=== PATIENT | female | born 1985 | race Caucasian/White ===

== ENCOUNTER → 2024-12-04 16:00 | Outpatient (BNVA) | payer BC, SELFPAY | PROVIDERS: PCP Internal Medicine; Visit Provider Physician Assistant Medical | DX: Z76.89 Persons encountering health services in other specified circumstances (principal); R63.5 Abnormal weight gain; Z68.33 Body mass index [BMI] 33.0-33.9, adult; E78.5 Hyperlipidemia, unspecified; I10 Essential (primary) hypertension; E06.3 Autoimmune thyroiditis; Z86.39 Personal history of other endocrine, nutritional and metabolic disease | CPT/HCPCS: 96127 ==

== ENCOUNTER 2024-12-08 08:50 | Outpatient (REF) | payer BC, SELFPAY ==
--- OUTSIDE RECORDS SUMMARY | 2024-12-08 09:04 | XMS_ITS | Data Portability ---
Author Organization [facility], , [facility] Address [address] [place] [address] Care Team Providers Care Avionics Test Technician Name Role Phone LINDA TRACEY Primary Care Provider Unavailabl e Assessment Encounter Date Assessment Date Assessment LastModified by Organization Details LastModified Time 06/25/2009 06/25/2009 Local reaction to adacel.? ? ? Reassured.? ? ? Suspect this will resolve over a two-week period.? ? ? Revisit if symptoms worse. him him Not available 04/15/2011 02:21:33 Plan of Treatment Reminders Order Date Submit Date Provider Last Modified By Organization Details Last Modified Time Details Appointments None recorded. Lab TSH, serum or plasma 2013 [facility], [address] [place] [address], [address], 19:19:56 T4, free, serum 2013 [facility], [address] [place] [address], [address], 4 19:19:54 Referral None recorded. Procedures None recorded. Surgeries None recorded. Imaging ultrasound , thyroid 2013 014 [facility] (Imaging), [address], [place], [address], 4 20:12:27 Medication Orders levothyrox ine 50 mcg tablet 2013 014 [facility], [address] [place], [address], 4 14:40:09 Tubersol 5 tub. unit/0.1 mL intraderma l injection solution 2008 009 [email or web address] Not available 4 14:04:33 Patient TargetsNo targets recorded. Patient Instructions Encounter Date Encounter Id Patient Instructions Last Modified By Organization Details Last Modified Time 05/24/2014 [id number] Well Visit, Ages 18 to 65: Care Instructions cresencio Not available 05/24/2014 14:40:05 [email or web address] Not available 2013 14:40:05 Reason for Referral None Reported. Results Created Date Observation Date Name Description Value Unit Range Abnormal Flag Note LastModifiedBy Organization Detail LastModifiedTime 06/21/20 09 06/21/2009 gluco se glucose 100 mg/dL 70-100 clini joanne refer ence range s fasti ng gluco se <100 mg/dL = nancie l fasti ng gluco se; 100-1 25 mg/dL = ifg (impa ired fasti ng gluco se); >126 mg/dL = provi siona l diagn osis of diabe man (conf irm by reperoxana brooks testdonnie early on A diffe day.) Not Available [address], [address], 06/21/2009 13:14:13 06/21/20 09 06/21/2009 thyro id stimu latin g hormo ne (TSH) TSH 1.66 uIU/m L 0.50-6 .00 the ameri can colle ge of endoc rinol ogy and ameri can thyro id assoc iatio n recom mend goal TSH value s betwe en 1.0-2 .5 mIU/m L. Not Available [address], [address], 06/21/2009 13:43:18 06/21/20 09 06/27/2009 varic marilyn, immun e statu s varicella-zo ster, acif >=1:4 abnormal refer ence range : <1:4 inter preti ve crite shruthi: <1:4 antib maxine not detec govind - evide nce for susce ptibi lity to vzv infec tion. > or = 1:4 antib maxine detec govind - evide nce for immun ity again st vzv infec tion. A posit sheeba titer (grea ter than or equal to 1:4) by antic omple ment immun ofluo resce nce (acif ) indic ates A histo ry of past infec tion by varic marilyn- zoste r virus . this test IS usual ly posit sheeba withi n 2 days after the onset of rash and IS there after posit sheeba for life. conve rsely , the absen ce of detec table antib maxine IS evide nce of susce ptibi lity to varic marilyn (chic kenpo x). Not Available [facility] [address], [place], [address], 06/27/2009 06:24:29 07/05/20 14 07/05/2014 T4, free, serum thyroxine free 4 1.17 NG/dL 0.93-1 .70 Nanette martin Note: New Refer ence Range as of 05/15 Not Available [facility] (Outpatient) [address] [place], [address], 07/05/2014 19:19:53 07/05/20 14 07/05/2014 TSH, serum or plasm a TSH 2.420 mU/L 0.270- 4.20 Not Available [facility] (Outpatient) [address] [place], [address], 07/05/2014 19:19:56 05/30/20 14 05/29/2014 ultra sound , thyro id OBSERV ATION: Examin ation: Thyroi d ultras ound Indica tion: Hypoth yroidi sm and family histor y of thyroi d nodule s (siste r will be having thyroi dectom y) Thyroi d ultras ound study was perfor med and multip le static and color flow images were obtain ed. Images are provid ed as transv erse by snow al by AP. The right lobe measur es 1.8 x 4.8 x 1.3 cm yieldi ng a volume of 6.0 cc. There are no discre te nodule s seen in the right lobe. At the inferi or portio n of the lobe, there are 2 hypoec hoic areas that appear to be lymph nodes. Both of these are greate r in the transv erse and sagitt al dimens ions versus AP. There are theref ore rounde d but contai n no centra l streak ing. The isthmu s measur es 0.4 cm in width. There are no nodule s in the isthmu s. The left lobe measur es 1.7 x 3.9 x 1.2 cm yieldi ng a volume of 4.2 cc. There is one nodule noted in the left lobe. Nodule #1: This nodule is in the lower portio n of the lobe and is anteri or and medial . It measur es 1.0 x 0.9 x 0.5 cm. The margin s are regula r and it is solid. It is genera lly hypoec hoic in echote xture. There are no calcif icatio ns seen in the shadow ing is not presen t. Impres christiano: Relati vely small thyroi d gland consis tent with a histor y of hypoth yroidi sm. There is some mild hetero geneit y to both lobes which could be consis tent with autoim mune diseas e. The single nodule noted in the inferi or portio n of the left lobe is below the thresh old of 1.5 cm and theref ore consid ered to be fairly low risk. If there is ongoin g concer n, this can be follow ed over time. Clinic al correl ation is advise d. Electr onical ly signed Goldy link Physic nick: Tay perez MD [facility] (Imaging) [address] , [place], [address], 07/12/2014 10:49:45 Result Notes None recorded. Problems Name Problem SNOMED Code Status Onset Date Resolution Date Notes Provider Name and Address Organization Details Recorded Time Hypothyroidis m 74326616 Active Luis Tesfaye MD [address] [place] [address], [id number] , [facility] 5 17:24:12 Tachycardia 9429809 Active Not Available [facility] 3 03:04:16 Low back pain 409119367 Active 2000 Not Available [facility] 3 03:04:16 Problem Notes None recorded. Procedures Surgical History Date Name Laterality Status Provider Name and Address Organization Details Recorded Time 07/28/2013 completed Angelica Connolly NP [address] [place], [address], [facility] 07/30/2013 20:03:23 07/03/2007 completed Not Available [facility] 06/18/2011 06:05:52 Imaging Results Imaging Date Name Status LastModified by Organiz ation Details LastModified Time 05/29/2014 ultrasound, thyroid completed [facility] (Imaging) [address] , [place], [address], 07/12/2014 10:49:45 Procedure Notes None recorded. Medical Equipment None Reported. Medications Name Sig Start Date Stop Date Status Note LastModified by Organization Details LastModified Time Tubersol 5 tub. unit/0.1 mL intradermal injection solution Take 1 mL by intradermal route. active Not Available Not Available No t Available levothyroxin e 50 mcg tablet TAKE ONE TABLET BY MOUTH EVERY DAY active Not Available Not Available No t Available Zenchent (28) 0.4 mg-35 mcg tablet active Not Available Not Available Not Available Vitals Date Recorded Body weight Body mass index (BMI) Body height Heart rate Systolic blood pressure Diastolic blood pressure Provider Name and Address Organization Details Last Updated DateTime 4 80852.7 00942 g 32.4 kg/m2 141.605 cm 100 /min 138 mm[Hg] 80 mm[Hg] Jodee Spencer LPN [facility] 4 14:04:33 Date Recorded Body height Body weight Body mass index (BMI) Body temperature Heart rate Systolic blood pressure Diastolic blood pressure Provider Name and Address Organization Details Last Updated DateTime 9 149.86 cm 71382.0 39189 g 22.9 kg/m2 97.9 [degF] 96 /min 124 mm[Hg] 80 mm[Hg] Krysten Marquez LPN [facility] 9 15:25:23 Date Recorded Body height Body mass index (BMI) Body weight Heart rate Systolic blood pressure Diastolic blood pressure Provider Name and Address Organization Details Last Updated DateTime 4 148.59 cm 29.4 kg/m2 86049.7 0891 g 68 /min 124 mm[Hg] 72 mm[Hg] Renettajunito Perales [place] [facility] 4 10:42:38 Date Recorded Body height Body mass index (BMI) Body weight Heart rate Systolic blood pressure Diastolic blood pressure Provider Name and Address Organization Details Last Updated DateTime 5 148.59 cm 29.2 kg/m2 66384.1 1654 g 96 /min 128 mm[Hg] 74 mm[Hg] Tiffanie Orlando [facility] 5 16:37:02 Social History Question Answer Notes LastModified by Organizat ion Details LastModified Time Tobacco Smoking Status Never Smoker Not Available [facility] 06/18/2011 04:54:19 Do You Have An Advance Directive? No [email or web address] Information not available 06/18/2011 What Is Your Level Of Alcohol Consumption? Occasional No Hx Abuse Information not available 05/24/2014 What Is Your Level Of Caffeine Consumption? Moderate 2 Cups Of Coffee A Day Information not available 06/21/2009 How Much Tobacco Do You Chew? None [email or web address] Information not available 06/18/2011 What Type Of Diet Are You Following? REGULAR [email or web address] Information not available 06/18/2011 Which Illicit Or Recreational Drugs Have You Used? 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 No [email or web address] Information not available 06/18/2011 Live Alone Or With Others? With Others /kid s Information not available 06/21/2009 Patient Has Health Care Proxy Signed And In Chart No Form Given To Patient 05/24/14 Information not available 05/24/2014 Marital Status [email or web address] Informatio n not available 05/24/2014 Mosquito Repellent Used Routinely No Information not available 05/24/2014 How Many Children Do You Have? 2 Daughters, 7 Yrs And 1 Yr [07/15] Information not available 05/24/2014 Seat Belts Used Routinely Yes [email or web address] Information not available 06/18/2011 Are You Sexually Active? Yes [email or web address] Information not available 06/18/2011 Smoke Alarm In Home Yes [email or web address] Information not available 06/18/2011 What Types Of Sporting Activities Do You Participate In? None [email or web address] Information not available 06/18/2011 General Stress Level Low [email or web address] Information not available 06/18/2011 Do You Use Sunscreen Routinely? Yes Information not available 05/24/2014 Sex: Unknown Functional Status None recorded. Mental Status None recorded. Family History Relationship Description Onset Age of this Age Resolved Age Notes LastModified by Organization Details LastModified Time Mother Hyperlipidem ia jpolgar Not available 2013 14:23:07 Paternal Grandmother Dementia jpolgar Not available 05/24 14:23:07 Maternal Grandmother Problem aneury sm jpolgar Not available 05/24/2014 14:23:07 Maternal Grandmother Malignant neoplasm of lung previo usly record ed as Cancer - Lung jpolgar Not available 05/24/2014 14:23:07 Maternal Grandmother Malignant tumor of colon previo usly record ed as Cancer - Colon jpolgar Not available 05/24/2014 14:23:07 Notes:No family hx of dm, br east cancer. No CAD hx. MOM: 60y/o: lipids DAD: 62y/o: a&w SIS :1: thyroid nodules with atypical cells. To get thyroidectomy soon BRO: 2: a&w OTTO: 2: a&w SON: 0 Medical History No medical history recorded. Gynecological History Statement/Question Response Menses Monthly Y HPV Y Duration of Flow (days) 6 History of Abnormal Pap Y Age at Menarche 12 Obstetrics History GPAL:G 0 P 0 0 0 0 Immunizations Vaccine Type Date Status Note Provider Nam mario and Address Organization Details Recorded Time Tdap 06/21/2009 completed Not Available [facility] 08/19/2019 02:27:37 Past Encounters Encounter ID Performer Location Encounter Start Date Encounter Closed Date Diagnosis/Indication Diagnosis SNOMED-CT Code Diagnosis ICD10 Code Diagnosis Note [id number] [facility] , [facility] [address] [place] [address] 12/02/2000 09:30:00 08/22/2008 02:02:29 [id number] Angelica Connolly NP , [facility] [address] [place] [address] 06/21/2009 07:59:35 06/21/2009 14:43:33 [id number] TREATMENT NURSE [facility], [facility] [place] [address] [place] [address] 06/24/2009 09:46:53 06/25/2009 08:31:01 [id number] Tracey Mccarthy MD [facility], OFFICE [address] [place] [address] 06/25/2009 15:11:18 06/26/2009 08:34:19 [id number] Stefan Pratt PA-C , [facility] [place] [address] [place] [address] 05/24/2014 13:50:28 05/24/2014 14:46:44 Adult health examination [id number] Benign exam. Oven Builder is done elsewhere. Counseling [id number] Hypothyroidism 81919254 d/w [place]. Will start supplement tation and recheck in 6 wks since she's symptomati c. Will US as she has concerns since sister has thyroid nodule and will be get thyroidect cassandra. [id number] LILLI Lange, [facility] [place] [address] [place] [address] 07/12/2014 10:30:32 07/12/2014 10:54:26 Hypothyroidism 67533701 Stable now on this dose. Continue [id number] MD ODELL Lanier, [facility] [place] [address] [place] [address] 05/03/2015 16:25:38 05/06/2015 13:17:33 Hypothyroidism 84469657 E03.9 Health Concerns Section Related Observation LastModified by Organization Detai ls LastModified Time None Recorded Concern Status LastModified by Organization Details LastModified Time None Recorded Advance Directives Directive N: Payers Encounter Date Sequence Insurance Name Policy Number Policy Palacio Covered Member ID Palacio Member ID Guarantor Name 06/24/2009 1 [facility] [place] [facility] [id number] Italo AhnRodriges [id number] Rica Martin O Rodriges 06/25/2009 1 [facility] [id number] Italo AhnRodriges [id number] Rica Matrin O Rodriges 05/24/2014 1 [facility] [id number] Bronson Estrada [id number] Rica Martin O Rodriges 07/12/2014 1 [facility] [id number] Bronson Estrada [id number] Rica Martin O Rodriges 05/03/2015 1 [facility] [id number] Bronson Estrada [id number] Rica E O Rodriges Notes Date Note Type Note Provider Name and Address Organization Details Recorded Time 06/24/2009 text/html InitializeSectio n( this.parentNode, 1 ); this.removeNode(tr ue)HPI Pt enters for PPD read at no charge..bf? Edilma Rucker LPN [facility] 06/24/2009 10:43:01 06/25/2009 text/html Patient seen toeunice bowers because of her reaction to adacel given 06/21. Noted pain and swelling in the next day. No fever. Noted some redness. Area feels better today. She thinks the area swelling a smaller. There is some ichiness. No previous difficulties with tetanus shots. No difficulty breathing. No fever Tracey Mccarthy MD [address] [place] [address], [phone], [facility] 06/25/2009 15:45:38 07/12/2014 text/html fu newly dx hypothyroidism. 6 wks on meds. Tired a bit but bad sleep lately. Not really noticing anything on the medicine though. Stefan Pratt PA-C [address] [place] [address], [phone], [facility] 07/12/2014 10:53:41 OBGyn Episode No OBEpisode recorded.
[2024-12-08 09:56] LABS: MANUAL DIFF FLAG NO
[2024-12-08 10:06] LABS: Basophils Absolute Auto 0.1 X10*3/uL (0.0-0.2); Basophils Percent Auto 1.1 % (0-2); Eosinophils Absolute Auto 0.1 X10*3/uL (0.0-0.4); Eosinophils Percent Auto 1.1 % (0-4); Hematocrit 38.1 % (37.0-47.0); Hemoglobin 13.3 g/dl (12.0-16.0); Imm Gran Abs Auto 0.01 X10*3/uL (0.00-0.03); Imm Gran Pct Auto 0.2 % (0.0-0.4); Lymphocytes Absolute Auto 1.6 X10*3/uL (1.2-4.9); Lymphocytes Percent Auto 35.5 % (20-40); Mean Corpuscular HGB Conc 34.9 g/dl (31.0-35.0); Mean Corpuscular Hemoglobin 30.4 pg (27.0-33.0); Mean Corpuscular Volume 87.2 fL (80.0-98.0); Mean Platelet Volume 9.8 fL (9.4-12.3); Monocytes Absolute Auto 0.3 X10*3/uL (0.1-1.2); Monocytes Percent Auto 6.7 % (2-11); Neutrophils Absolute Auto 2.5 x10*3/uL (2.0-8.3); Neutrophils Percent Auto 55.4 % (45-73); Platelet Count 191 X10*3/uL (160-400); Red Blood Count 4.37 X10*6/uL (4.20-5.50); Red Cell Distribution Width 12.2 % (11.0-16.0); White Blood Count 4.5 X10*3/uL (4.8-10.8)
[2024-12-08 10:18] LABS: Estimated Average Glucose 97 mg/dL; Hemoglobin A1C 110.9289 umol/L; Total Hemoglobin (HGBA1C) 3528.4474 umol/L
[2024-12-08 10:43] LABS: Erythrocyte Sedimentation Rate 11 MM/HR (0-20)
[2024-12-08 10:49] LABS: Alanine Aminotransferase 37 U/L (0-31); Albumin Level 4.3 g/dL (3.5-5.0); Alkaline Phosphatase 51 U/L (39-117); Anion Gap 11 (12-20); Aspartate Amino Transferase 26 U/L (5-31); Bilirubin Direct 0.2 mg/dL (0.0-0.5); Bilirubin Total 0.7 mg/dL (0.0-1.0); Blood Urea Nitrogen 10 mg/dL (9-16); C Reactive Protein 0.21 mg/dL (< or = 0.50); Calcium 9.3 mg/dL (8.4-10.2); Carbon Dioxide 22 mmol/L (22-29); Chloride 106 mmol/L (96-108); Cholesterol 180 mg/dL (<200); Estimated Glomerular Filt Rate > 60; Glucose Fasting 95 mg/dL (60-99); HDL Cholesterol 59 mg/dL (>40); LDL Cholesterol Calculated 105 mg/dL (<100); Magnesium 1.8 mg/dL (1.6-2.6); Potassium 3.4 mmol/L (3.3-5.1); Sodium 136 mmol/L (135-145); Total Protein 7.2 g/dL (6.5-8.0); Triglycerides 80 mg/dL (<150)
[2024-12-08 11:05] LABS: TSH reflex Free T4 1.18 uIU/mL (0.32-4.0); Vitamin D 25-OH Total 29.2 ng/mL (>30)
[2024-12-08 11:14] LABS: Folate 13.5 ng/mL (> or = 4.0); Vitamin B12 587 pg/mL (200-900)
[2024-12-09 08:28] LABS: Lutenizing Hormone 1.4 mIU/mL
[2024-12-12 22:29] LABS: Estrogen 335 pg/mL
[2024-12-14 13:24] LABS: Testosterone, Total 14 ng/dL (2-45)
== END 2024-12-08 08:51 | disposition home or self-care (01) ==
LOC: HO.HMGCLDS 08:50
PROVIDERS: Visit Provider Physician Assistant Medical
DX: Z00.00 Encounter for general adult medical examination without abnormal findings (principal); Z13.1 Encounter for screening for diabetes mellitus; Z13.6 Encounter for screening for cardiovascular disorders
CPT/HCPCS: 36415; 80053; 80061; 80076; 82248; 82306; 82607; 82672; 82746; 83002; 83036; 83735; 84144; 84146; 84403; 84443; 85025; 85652; 86140

== ENCOUNTER → 2024-12-18 16:00 | Outpatient (BNVA) | payer BC, SELFPAY | PROVIDERS: PCP Internal Medicine; Visit Provider Physician Assistant Medical | DX: R03.0 Elevated blood-pressure reading, without diagnosis of hypertension (principal); E66.811 Obesity, class 1; Z68.33 Body mass index [BMI] 33.0-33.9, adult; E78.00 Pure hypercholesterolemia, unspecified | CPT/HCPCS: 96127 ==

== ENCOUNTER 2025-01-18 12:49 | Outpatient (REF) | payer BC, SELFPAY ==
--- NOTE | ~2025-01-18 | US_ITS ---
EXAMINATION: US THYROID CLINICAL INFORMATION: Goiter; personal history of other endocrine, nutritional, and metabolic disorders. COMPARISON: None available. TECHNIQUE: Linear transducer grayscale and color Doppler examination with attention to the region of the thyroid. FINDINGS: SIZE: Measurements of the thyroid lobes and nodules are given in sagittal, anteroposterior and transverse dimensions respectively. Right Thyroid Lobe: 4.6 x 1.4 x 1.3 cm, volume 4.3 mL. Parenchyma: The gland echotexture is heterogeneous. Thyroid vascularity is normal. Left Thyroid Lobe: 4.7 x 1.5 x 1.6 cm, volume 5.9 mL. Parenchyma: The gland echotexture is heterogeneous. Thyroid vascularity is normal. Isthmus: 0.44 cm in maximum AP dimension. Estimated total number of nodules greater than or equal to 1 cm: 1. Hospital Clerk nodules are described as follows: 1. Location: Left upper pole. Size: 1.2 x 0.7 x 0.8 cm, volume 0.4 mL. Nodule characteristics: Composition: Solid (2). Echogenicity: Hypoechoic (2). Shape: Not taller than wide (0). Margins: Smooth (0). Echogenic Foci: None (0). ACR TI-RADS total points: 4 ACR TI-RADS category: 4 2. Location: Right mid pole. Size: 0.7 x 0.4 x 0.6 cm, volume 0.08 mL. Nodule characteristics: Composition: Spongiform (0). ACR TI-RADS category: 1 3. Location: Right lower pole. Size: 0.5 x 0.5 x 0.4 cm, volume 0.5 mL. Nodule characteristics: Composition: Spongiform (0). ACR TI-RADS category: 1 NODES: No lymphadenopathy is seen in the tissue surrounding the thyroid gland. US/US thyroid IMPRESSION: 1. Heterogeneous thyroid suggesting thyroiditis. 2. There is a 1.2 cm left upper pole TR category 4 nodule. No prior available for direct comparison. Follow-up recommended as per below. 3. There are 2 subcentimeter right thyroid spongiform nodules, both benign. ACR TI-RADS RECOMMENDATION REFERENCE: Ultrasound-guided fine-needle aspiration, followup ultrasound, no further follow up. * TR1 (0 point) and TR2 (2 points): No FNA or follow up. * TR3 (3 points): FNA if more than or equal to 2.5 cm in maximum dimension, followup ultrasound in 1, 3 and 5 years if 1.5 to 2.4 cm in maximum dimension. * TR4 (4-6 points): FNA if more than or equal to 1.5 cm in maximum dimension, followup ultrasound in 1, 2, 3 and 5 years if 1 to 1.4 cm in maximum dimension. * TR5 (more than or equal to 7 points): FNA if more than or equal to 1 cm in maximum dimension, followup ultrasound every year for 5 years if 0.5 to 0.9 cm in maximum dimension. * TR3, TR4 or TR5 nodules that are below the size threshold for followup receive no follow up. Electronically signed by: Juan F Rai MD 01/18/2025 01:21 PM EDT
--- OUTSIDE RECORDS SUMMARY | 2025-01-18 13:54 | XMS_ITS | Data Portability ---
Author Organization [facility], , [facility] Address [address] [place] [address] Care Team Providers Care Platinumsmith Name Role Phone LINDA TRACEY Primary Care Provider Unavailabl e Assessment Encounter Date Assessment Date Assessment LastModified by Organization Details LastModified Time 06/25/2009 06/25/2009 Local reaction to adacel. Reassured. Suspect this will resolve over a two-week period. Revisit if symptoms worse. him him Not available 04/15/2011 02:21:33 Plan of Treatment Reminders Order Date Submit Date Provider Last Modified By Organization Details Last Modified Time Details Appointments None recorded. Lab TSH, serum or plasma 2013 [facility], [address] [place] [address], [address], 4 19:19:56 T4, free, serum 2013 [facility], [address] [place] [address], [address], 4 19:19:54 Referral None recorded. Procedures None recorded. Surgeries None recorded. Imaging ultrasound , thyroid 2013 014 [facility] (Imaging), [address], [place], [address], 4 20:12:27 Medication Orders levothyrox ine 50 mcg tablet 2013 014 [facility], [address] [place], [address], 4 14:40:09 Tubersol 5 tub. unit/0.1 mL intraderma l injection solution 2008 009 [email or web address] Not available 4 14:04:33 Patient TargetsNo targets recorded. Patient Instructions Encounter Date Encounter Id Patient Instructions Last Modified By Organization Details Last Modified Time 05/24/2014 [id number] Well Visit, Ages 18 to 65: Care Instructions cresencio Not available 05/24/2014 14:40:05 [email or web address] Not available 2013 14:40:05 Reason for Referral [...] osis of diabe man (conf irm by aleksandar brooks testdonnie early on A diffe day.) Not Available [address], [address], 06/21/2009 13:14:13 06/21/20 09 06/21/2009 thyro id stimu latin g hormo ne (TSH) TSH 1.66 uIU/m L 0.50-6 .00 the ameri can colle ge of endoc rinol ogy and ameri can thyro id assoc iatio n recom mend goal TSH value s betwe en 1.0-2 .5 mIU/m L. Not Available [address], [address], 06/21/2009 13:43:18 06/21/20 09 06/27/2009 varic marilyn, [...] varic marilyn (chic kenpo x). Not Available [facility] [address], [place], [address], 06/27/2009 06:24:29 07/05/20 14 07/05/2014 T4, free, serum thyroxine free 4 1.17 NG/dL 0.93-1 .70 Nanette martin Note: New Refer ence Range as of 05/15 Not Available [facility] (Outpatient) [address] [place], [address], 07/05/2014 19:19:53 07/05/20 14 07/05/2014 TSH, serum or plasm a TSH 2.420 mU/L 0.270- 4.20 Not Available [facility] (Outpatient) [address] [place], [address], 07/05/2014 19:19:56 05/30/20 14 05/29/2014 ultra sound [...] provid ed as transv erse by snow navarro by ARAM. The right lobe measur es 1.8 x [...] Goldy link Physic nick: Tay perez MD [facility] (Imaging) [address] , [place], [address], 07/12/2014 10:49:45 Result Notes None recorded. Problems Name Problem SNOMED Code Status Onset Date Resolution Date Notes Provider Name and Address Organization Details Recorded Time Hypothyroidis m 57781151 Active Luis Tesfaye MD [address] [place] [address], [phone] , [facility] 5 17:24:12 Tachycardia 3158393 Active Not Available [facility] 3 03:04:16 Low back pain 304224369 Active 2000 Not Available [facility] 3 03:04:16 Problem Notes None recorded. Procedures Surgical History Date Name Laterality Status Provider Name and Address Organization Details Recorded Time 07/28/2013 completed Angelica Connolly NP [address] [place] [address], [phone], [facility] 07/30/2013 20:03:23 07/03/2007 completed Not Available [facility] 06/18/2011 06:05:52 Imaging Results None recorded. Procedure Notes None recorded. Medical Equipment None [...] Available Not Available Vitals Date Recorded Body height Body mass index (BMI) Body weight Heart rate Systolic blood pressure Diastolic blood pressure Provider Name and Address Organization Details Last Updated DateTime 5 148.59 cm 29.2 kg/m2 27546.1 1654 g 96 /min 128 mm[Hg] 74 mm[Hg] Tiffanie Verduzcoard [facility] 5 16:37:02 Date Recorded Body weight Body mass index (BMI) Body height Heart rate Systolic blood pressure Diastolic blood pressure Provider Name and Address Organization Details Last Updated DateTime 4 06131.7 77870 g 32.4 kg/m2 141.605 cm 100 /min 138 mm[Hg] 80 mm[Hg] Jodee Spencer [facility] 4 14:04:33 Date Recorded Body height Body weight Body mass index (BMI) Body temperature Heart rate Systolic blood pressure Diastolic blood pressure Provider Name and Address Organization Details Last Updated DateTime 9 149.86 cm 05024.0 85098 g 22.9 kg/m2 97.9 [degF] 96 /min 124 mm[Hg] 80 mm[Hg] Krysten Marquez [employer] [facility] 11/24/200 9 15:25:23 Date Recorded Body height Body mass index (BMI) Body weight Heart rate Systolic blood pressure Diastolic blood pressure Provider Name and Address Organization Details Last Updated DateTime 4 148.59 cm 29.4 kg/m2 53830.7 0891 g 68 /min 124 mm[Hg] 72 mm[Hg] Renetta Perales MA [facility] 4 10:42:38 Social History Question Answer Notes LastModified by Organizat ion Details LastModified Time Tobacco Smoking Status Never Smoker Not Available [facility] 06/18/2011 04:54:19 Do You Have An Advance Directive? No DBA_[email or web address]_ [email or web address] Information not available 06/18/2011 What Is Your Level Of Caffeine Consumption? [...] not available 05/24/2014 Education 4 Year College [employer] [facility]psy[facility]ology Information not available 06/21/2009 Are There Any Guns Present In Your Home? No DBA_PATCH_ [email or web address] Information not available 06/18/2011 Live Alone Or With Others? With Others /kids Information not available 06/21/2009 Patient Has Health [...] not available 05/24/2014 Sex: Unknown Functional Status Question Answer Note LastModified by Organizat ion Details LastModified Time What is your level of alcohol consumption? 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 Family History Relationship [...] Vaccine Type Date Status Note Provider Nam e and Address Organization Details Recorded Time Tdap 06/21/2009 completed Not Available [facility] 08/19/2019 02:27:37 Past Encounters Encounter ID Performer Location Encounter Start Date Encounter Closed Date Diagnosis/Indication Diagnosis SNOMED-CT Code Diagnosis ICD10 Code Diagnosis Note [id number] [facility] , [address] [address] 12/02/2000 09:30:00 08/22/2008 02:02:29 [id number] ELY Kapoor, [facility], OFFICE [address] [place] [address] 06/21/2009 07:59:35 06/21/2009 14:43:33 [id number] TREATMENT NURSE [facility] ODELL, [facility], OFFICE [address] [place] [address] 06/24/2009 09:46:53 06/25/2009 08:31:01 [id number] MD ODELL Carty, [facility], OFFICE [address] [place] [address] 06/25/2009 15:11:18 06/26/2009 08:34:19 [id number] LILLI Lange [facility], OFFICE [address] [place] [address] 05/24/2014 13:50:28 05/24/2014 14:46:44 Adult health examination [id number] Benign exam. Spring Up Supervisor is done elsewhere. Counseling [id number] Hypothyroidism 41454396 d/w [place]. Will start supplement tation and recheck in 6 wks since she's symptomati c. Will US as she has concerns since sister has thyroid nodule and will be get thyroidect cassandra. [id number] LILLI Lange [facility], OFFICE [address] [place] [address] 07/12/2014 10:30:32 07/12/2014 10:54:26 Hypothyroidism 35325894 Stable now on this dose. Continue [id number] MD ODELL Lanier, [facility], OFFICE [address] [place] [address] 05/03/2015 16:25:38 05/06/2015 13:17:33 Hypothyroidism 47615453 E03.9 Health Concerns Section Related Observation LastModified by Organization Detai ls LastModified Time None Recorded Concern Status LastModified by Organization Details LastModified Time None Recorded Advance Directives Directive N: Payers Insurance Date Sequence Insurance Name Policy Number Policy Palacio Covered Member ID Palacio Member ID Guarantor Name 04/16/2014 1 [facility] CARL [id number] Italo Gann'Rodriges [id number] Rica Rodriges 05/24/[address] [facility] [id number] Rica Mitchell [id number] Rica Masa 10/11/2007 1 [facility] (POS) [id number] Krysten Elizondo [id number] Rica Rodriges 05/03/2015 1 [facility] [id number] Bronson Estrada [id number] Rica Rodriges Notes Date Note Type Note Provider Name and Address Organization Details Recorded Time 06/24/2009 text/html InitializeSectio n( this.parentNode, 1 ); this.removeNode(tr ue)HPI Pt enters for PPD read at no charge..bf Edilma Rucker LPN [facility] 06/24/2009 10:43:01 06/25/2009 text/html Patient seen grayson bowers because of her reaction to adacel given 06/21. Noted pain and swelling in the next day. No fever. Noted some redness. Area feels better today. She thinks the area swelling a smaller. There is some ichiness. No previous difficulties with tetanus shots. No difficulty breathing. No fever Tracey Mccarthy MD [address] [place] [address], [phone], [facility] 06/25/2009 15:45:38 07/12/2014 text/html fu newly dx hypothyroidism. 6 wks on meds. Tired a bit but bad sleep lately. Not really noticing anything on the medicine though. Stefan Pratt PA-C [address] [place] [address], [phone], [facility] 07/12/2014 10:53:41 OBGyn Episode No OBEpisode recorded.
== END 2025-01-18 12:50 | disposition home or self-care (01) ==
LOC: HO.HMGCX 12:49
PROVIDERS: PCP Internal Medicine; Visit Provider Physician Assistant Medical
DX: Z86.39 Personal history of other endocrine, nutritional and metabolic disease (principal)
CPT/HCPCS: 76536

== ENCOUNTER → 2025-01-18 12:54 | Outpatient (BNV) | payer BC, SELFPAY | PROVIDERS: PCP Internal Medicine; Visit Provider Radiology Diagnostic Radiology | DX: E04.2 Nontoxic multinodular goiter (principal) | CPT/HCPCS: 76536 ==

== ENCOUNTER → 2025-01-23 09:10 | Outpatient (REF) | payer BC, SELFPAY ==
--- NOTE | 2025-01-23 09:13 | CA_ITS ---
Transthoracic Echocardiogram Patient (Last, First, Middle): Rica Mitchell, Gender: Female Date of : 1985 Age: 39 Procedure Date: 01/23/2025 Procedure Type: Transthoracic Echocardiogram Location: OP Height: 149.86 cm Weight: 70.31 kg BSA: 1.65 m2 Heart Rate: bpm BP: 140 / 70 mmHg Gauge Machine Operator: CP/RC Referring MD: Taylor White PA-C Symptoms: R01.1 - Cardiac murmur, unspecified Study Quality: Adequate ECG Rhythm: Sinus Conclusions: - The left ventricular systolic function is normal. The calculated ejection fraction is 60% by biplane method. - No obvious valvular pathology seen on this study. Findings Left Ventricle Normal left ventricular cavity size. There is normal left ventricular wall thickness. The left ventricular systolic function is normal. The calculated ejection fraction is 60% by biplane method. There is no evidence of regional wall motion abnormalities. Diastolic function is normal for age. Right Ventricle Normal right ventricular cavity size and systolic function. Atria Both atria are normal in size. Aortic Valve The aortic valve was not well visualized. There is no aortic valve stenosis. There is no aortic valve regurgitation. Mitral Valve The mitral valve appears normal. There is no mitral valve regurgitation. There is no mitral valve stenosis. Pulmonic Valve The pulmonic valve is likely normal. Tricuspid Valve There is trace tricuspid valve regurgitation. There is no evidence of pulmonary hypertension. Great Vessels The asc aorta and aortic arch are normal in size. Venous The inferior vena cava is normal in size and collapses greater than 50% with inspiration. Pericardium/Pleural There is no evidence of pericardial effusion. Prior Study Comparison No prior study available for comparison. Recommendations, Care & Conclusions No obvious valvular pathology seen on this study. Measurements 2D Linear Measurements IVSd: 1.01 0.6-0.9/0.6-1.0 cm LVIDd: 4.06 3.9-5.3/4.2-5.9 cm LVIDd Index: 2.46 2.4-3.2/2.2-3.1 cm/m2 LVIDs: 2.51 2.0-3.6 cm LVPWd: 0.97 0.7-1.1 cm LA Diam: 3.00 2.7-3.8/3.0-4.0 cm LAIDs Index: 1.82 1.5-2.3 cm/m2 LV Mass: 159.56 67-162/88-224 g LV Mass Index: 96.70 43-95/49-115 g/m2 LVOT Diam: 2.10 3.0+(-)1.3 cm 2D Systolic Function EF 4C: 58.80 >55% EF 2C: 60.50 >55% EF BiP: 59.90 >55% Mitral Valve MV Pk E: 1.11 MV PK A: 0.75 MV Decel Time: 151.00 E/A: 1.50 E'Lateral: 9.79 E'Medial: 6.85 E/E' Med: 16.20 E/E' Lat: 11.30 PHT: 44.00 MVA PHT: 5.00 Decel Ocean: 7.33 Aortic Valve AoV Pk Andrei: 1.68 AoV Mn Andrei: 1.17 AoV VTI: 0.33 AoV Pk Grad: 11.00 Aov Mn Grad: 6.00 MANUEL Cont.VTI: 2.33 LVOT LVOT Pk Andrei: 1.15 LVOT Mn Andrei: 0.72 LVOT VTI: 0.22 LVOT Pk Grad: 5.00 LVOT Mn Grad: 2.00 LVOT Diam: 2.10 LVOT Area: 3.46 Diastolic Function MV Pk E: 1.11 MV Pk A: 0.75 E/A: 1.50 E'Medial: 6.85 E/E' Med: 16.20 E' Laterial: 9.79 E/E' Lat: 11.30 Right Ventricle TAPSE (mm): 29.10 TVS' Andrei: 12.80 Tricuspid Valve RA Press: 3.00 Great Vessels Aorta Sinus of Valsalva: 2.78 2.0-3.5 cm Ao Asc: 2.90 2.1-3.4 cm Ao Arch: 2.40 Updated in Other Vendor System with Status of Final Rakan Alves MD electronically signed on 01/23/2025 4:16:16 PM with status of Final
--- OUTSIDE RECORDS SUMMARY | 2025-01-23 09:45 | XMS_ITS | Data Portability ---
Author Organization [facility], , [facility] Address [address] [place] [address] Care Team Providers Care Warehouse Worker Name Role Phone DANISTRACEY GARCIA Primary Care Provider Unavailabl e Assessment Encounter [...] recorded. Lab TSH, serum or plasma 2013 [facility], [address] [place] [address], [id number], 4 19:19:56 T4, free, serum 2013 [facility], [address] [place] [address], [id number], 4 19:19:54 Referral None recorded. Procedures None recorded. Surgeries None recorded. Imaging ultrasound , thyroid 2013 [facility] (Imaging), [address], [place], [address], 4 20:12:27 Medication Orders levothyrox ine 50 mcg tablet 2013 [id number], [address] [place], [address], 4 14:40:09 Tubersol 5 tub. unit/0.1 mL intraderma l injection solution 2008 009 [email or web address] Not available 4 14:04:33 Patient TargetsNo targets recorded. Patient Instructions Encounter Date Encounter Id Patient Instructions Last Modified By Organization Details Last Modified Time 05/24/2014 [id number] Well Visit, Ages 18 to 65: Care Instructions [email or web address] Not available 05/24/2014 14:40:05 [email or web address] Not available [...] of diabe man (conf irm by aleksandar early on A diffe day.) Not Available [address], [address], 06/21/2009 13:14:13 06/21/20 09 06/21/2009 thyro id stimu latin g hormo ne (TSH) TSH 1.66 uIU/m L 0.50-6 .00 the ameri can colle ge of endoc rinol ogy and ameri can thyro id assoc iatio n recom mend goal TSH value s betwe en 1.0-2 .5 mIU/m L. Not Available [address], [address], 06/21/2009 13:43:18 06/21/20 09 06/27/2009 varic marilyn, [...] varic marilyn (chic kenpo x). Not Available [facility] [address], [place], [address], 06/27/2009 06:24:29 07/05/20 14 07/05/2014 T4, free, serum thyroxine free 4 1.17 NG/dL 0.93-1 .70 Nanette martin Note: New Refer ence Range as of 05/15 Not Available [facility] (Outpatient) [address] [place], [address], 07/05/2014 19:19:53 07/05/20 14 07/05/2014 TSH, serum or plasm a TSH 2.420 mU/L 0.270- 4.20 Not Available [facility] (Outpatient) [address] [place], [address], 07/05/2014 19:19:56 05/30/20 14 05/29/2014 ultra sound [...] as transv erse by snow navarro by AP. The right lobe measur es [...] Goldy link Physic nick: Tay perez MD [facility] (Imaging) [address] , [place], [address], 07/12/2014 10:49:45 Result Notes None recorded. Problems Name Problem SNOMED Code Status Onset Date Resolution Date Notes Provider Name and Address Organization Details Recorded Time Hypothyroidis m 38405870 Active Luis Tesfaye MD [address] [place] [address], [phone] , [facility] 5 17:24:12 Tachycardia 1314158 Active Not Available [facility] 3 03:04:16 Low back pain 180175563 Active 2000 Not Available [facility] 3 03:04:16 Problem Notes None recorded. Procedures Surgical History Date Name Laterality Status Provider Name and Address Organization Details Recorded Time 07/28/2013 completed Angelica Connolly NP [address] [place] [address], [phone], [facility] 07/30/2013 20:03:23 07/03/2007 completed Not Available [facility] 06/18/2011 06:05:52 Imaging Results None recorded. Procedure [...] Updated DateTime 5 148.59 cm 29.2 kg/m2 99720.1 1654 g 96 /min 128 mm[Hg] 74 mm[Hg] Tiffanie Verduzcoard [facility] 5 16:37:02 Date Recorded Body weight Body mass index (BMI) Body height Heart rate Systolic blood pressure Diastolic blood pressure Provider Name and Address Organization Details Last Updated DateTime 4 75509.7 00056 g 32.4 kg/m2 141.605 cm 100 /min 138 mm[Hg] 80 mm[Hg] Jodee Spencer [facility] 4 14:04:33 Date Recorded Body height Body weight Body mass index (BMI) Body temperature Heart rate Systolic blood pressure Diastolic blood pressure Provider Name and Address Organization Details Last Updated DateTime 9 149.86 cm 47396.0 36688 g 22.9 kg/m2 97.9 [degF] 96 /min 124 mm[Hg] 80 mm[Hg] Krysten Marquez [facility] 9 15:25:23 Date Recorded Body height Body mass index (BMI) Body weight Heart rate Systolic blood pressure Diastolic blood pressure Provider Name and Address Organization Details Last Updated DateTime 4 148.59 cm 29.4 kg/m2 43858.7 0891 g 68 /min 124 mm[Hg] 72 mm[Hg] Renetta Perales [place] - [facility] 4 10:42:38 Social History Question Answer Notes LastModified by Organizat ion Details LastModified Time Tobacco Smoking Status Never Smoker Not Available [facility] 06/18/2011 04:54:19 Do You Have An Advance [...] not available 05/24/2014 Education 4 Year College [employer] Information not available 06/21/2009 Are There [...] not available 06/18/2011 General Stress Level Low Information not available 06/18/2011 Do You Use [...] SNOMED-CT Code Diagnosis ICD10 Code Diagnosis Note [id number] [facility] , [address] [address] 12/02/2000 09:30:00 08/22/2008 02:02:29 [id number] Angelica Connolly NP , [facility], [address] [place] [address] 06/21/2009 07:59:35 06/21/2009 14:43:33 [id number] TREATMENT NURSE [facility], [facility], [address] [place] [address] 06/24/2009 09:46:53 06/25/2009 08:31:01 [id number] MD ODELL Carty, [facility], [address] [place] [address] 06/25/2009 15:11:18 06/26/2009 08:34:19 [id number] LILLI Lange, [facility], [address] [place] [address] 05/24/2014 13:50:28 05/24/2014 14:46:44 Adult health examination 801988353 Benign exam. Chief Investigator is done elsewhere. Counseling [id number] Hypothyroidism 08771645 d/w [place]. Will start supplement tation and recheck in 6 wks since she's symptomati c. Will US as she has concerns since sister has thyroid nodule and will be get thyroidect cassandra. [id number] LILLI Lange, [facility], [address] [place] [address] 07/12/2014 10:30:32 07/12/2014 10:54:26 Hypothyroidism 02746670 Stable now on this dose. Continue [id number] MD ODELL Lanier, [facility], [address] [place] [address] 05/03/2015 16:25:38 05/06/2015 13:17:33 Hypothyroidism 98111968 E03.9 Health Concerns Section Related Observation LastModified by Organization Detai ls LastModified Time None Recorded Concern Status LastModified by Organization Details LastModified Time None Recorded Advance Directives Directive N: Payers Insurance Date Sequence Insurance Name Policy Number Policy Palacio Covered Member ID Palacio Member ID Guarantor Name 04/16/2014 1 [facility] [facility] [place] [id number] Italo Mitchell [id number] Rica Rodriges 05/24/[address] [facility] [place] [id number] Rica AhnRodriges [id number] Rica E O Rodriges 10/11/2007 1 [facility] [place] ([facility]) [id number] Krysten Elizondo [id number] Rica Martin O Rodriges 05/03/2015 1 [facility] [id number] Bronson Estrada [id number] Rica Martin O Rodriges Notes Date Note Type Note Provider Name and Address Organization Details Recorded Time 06/24/2009 text/html InitializeSectio n( this.parentNode, 1 ); this.removeNode(tr ue)HPI Pt enters for PPD read at no charge..bf [facility] 06/24/2009 10:43:01 06/25/2009 text/html Patient seen toeunice bowers because of her reaction to adacel given 06/21. Noted pain and swelling in the next day. No fever. Noted some redness. Area feels better today. She thinks the area swelling a smaller. There is some ichiness. No previous difficulties with tetanus shots. No difficulty breathing. No fever Tracey Mccarthy MD [address] [place] [address], [phone], [facility] 06/25/2009 15:45:38 07/12/2014 text/html fu newly dx hypothyroidism. 6 wks on meds. Tired a bit but bad sleep lately. Not really noticing anything on the medicine though. Stefan Pratt PA-C [address] [place] [address], [phone], [facility] 07/12/2014 10:53:41 OBGyn Episode No OBEpisode recorded.
== END ==
LOC: HO.CARD 09:10
PROVIDERS: PCP Internal Medicine; Visit Provider Physician Assistant Medical
DX: R01.1 Cardiac murmur, unspecified (principal); I10 Essential (primary) hypertension; E78.5 Hyperlipidemia, unspecified
CPT/HCPCS: 93306

== ENCOUNTER → 2025-01-23 09:13 | Outpatient (BNV) | payer BC, SELFPAY | PROVIDERS: PCP Internal Medicine; Visit Provider Internal Medicine | DX: R01.1 Cardiac murmur, unspecified (principal) | CPT/HCPCS: 93306 ==

== ENCOUNTER 2025-02-01 07:53 | Outpatient (AMB) | payer BC, SELFPAY ==
[2025-02-01 07:54] VITALS: BP 132/80; PULSE 99; O2SAT 100; BMI 33.7
--- NOTE | 2025-02-01 07:54 | MHC.OFFVIS ---
Vital Signs 02/01/25 07:54 Height 4 ft 11 in Weight 166 lb 10.711 oz BMI 33.7 BP 132/80 Blood Pressure Location Lt brachial Position Sitting Pulse 99 Pulse Source Pulse Oximeter Pulse Oximetry (%) 100 Oxygen Delivery Method Room Air Intake Visit Reasons: Autoimmune thyroiditis Stock Holder Required: No Accompanied by: Self / Same As Patient Allergies metronidazole (From FLAGYL) Adverse Reaction (Severe, Unverified 02/01/25 07:58) SEVERE NAUSEA Medication List - Last Reconciled 02/01/25 by Alison Palomares MD levothyroxine 50 mcg PO 4XW 3 months semaglutide (weight loss) (Wegovy) 0.25 mg (0.5 mL) subcut QWEEK HPI Comments Details: 39-year-old female here today for initial evaluation of hypothyroidism and multiple thyroid nodules. Has history of thyroid nodules since 2013 or so. FNA biopsy of the left dominant nodule per patient done at [facility] was benign , I do not have records of this. Ultrasound of the thyroid 01/18/2025: I reviewed the images myself which showed a left superior 1.2 cm solid hypoechoic TR 4 nodule, this meets criteria for follow up. A right midpole 0.7 cm spongiform nodule, right inferior pole 0.5 cm spongiform nodule. Heterogenous appearance of the thyroid gland noted. Hypothyroidism diagnosed: 2013 On levothyroxine 50 mcg Tues, Thurs , Sat and Sun Most recent TSH from 12/08/2024 normal at 1.18. Patient currently denies heat or cold intolerance, diarrhea or constipation, palpitation, anxiety, mood changes, changes in appearance of eyes or vision changes, tremors, increased diaphoresis or dry skin. Does have hair loss. Difficulty losing weight. ?Reports tiredness. Patient denies any difficulty swallowing, pain on swallowing or voice changes or difficulty breathing. Patient denies any history of childhood neck radiation. Denies having ever used lithium, amiodarone or biotin supplements. Family history of thyroid cancer in sister. Doing well now after surgery. 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 COMPARISON: None available. TECHNIQUE: Linear transducer grayscale and color Doppler examination with attention to the region of the thyroid. FINDINGS: SIZE: Measurements of the thyroid lobes and nodules are given in sagittal, anteroposterior and transverse dimensions respectively. Right Thyroid Lobe: 4.6 x 1.4 x 1.3 cm, volume 4.3 mL. Parenchyma: The gland echotexture is heterogeneous. Thyroid vascularity is normal. Left Thyroid Lobe: 4.7 x 1.5 x 1.6 cm, volume 5.9 mL. Parenchyma: The gland echotexture is heterogeneous. Thyroid vascularity is normal. Isthmus: 0.44 cm in maximum AP dimension. Estimated total number of nodules greater than or equal to 1 cm: 1. Food Preparer nodules are described as follows: 1. Location: Left upper pole. Size: 1.2 x 0.7 x 0.8 cm, volume 0.4 mL. Nodule characteristics: Composition: Solid (2). Echogenicity: Hypoechoic (2). Shape: Not taller than wide (0). Margins: Smooth (0). Echogenic Foci: None (0). ACR TI-RADS total points: 4 ACR TI-RADS category: 4 2. Location: Right mid pole. Size: 0.7 x 0.4 x 0.6 cm, volume 0.08 mL. Nodule characteristics: Composition: Spongiform (0). ACR TI-RADS category: 1 3. Location: Right lower pole. Size: 0.5 x 0.5 x 0.4 cm, volume 0.5 mL. Nodule characteristics: Composition: Spongiform (0). ACR TI-RADS category: 1 NODES: No lymphadenopathy is seen in the tissue surrounding the thyroid gland. US/US thyroid IMPRESSION: 1. Heterogeneous thyroid suggesting thyroiditis. 2. There is a 1.2 cm left upper pole TR category 4 nodule. No prior available for direct comparison. Follow-up recommended as per below. 3. There are 2 subcentimeter right thyroid spongiform nodules, both benign. [facility] Medical History (Updated 02/01/25 @ 08:19 by Alison Palomares MD) Hypothyroid Multiple thyroid nodules White coat syndrome without diagnosis of hypertension Heart murmur H/O thyroid nodule Hypertension Pure hypercholesterolemia, unspecified Hyperlipidemia LDL goal <100 Class 1 obesity with body mass index (BMI) of 33.0 to 33.9 in adult Establishing care with new doctor, encounter for Hair loss Weight gain Shabnam's thyroiditis Family History Father High cholesterol Prostate cancer Mother High cholesterol Social History Housing: House Alcohol intake: current Alcohol intake frequency: a few times a month Patient Tobacco Use Status: Never used Tobacco service: No Current occupational status: employed Cognitive needs: No Hearing needs: No Vision needs: No Physical Exam Vital Signs: Last Vital Signs Pulse 99 02/01/25 07:54 BP 132/80 02/01/25 07:54 Pulse Ox 100 02/01/25 07:54 Oxygen Delivery Method Room Air 02/01/25 07:54 BMI result Body Mass Index 33.7 Assessment & Plan Assessment & Plan (1) Multiple thyroid nodules: Code(s): E04.2 - Nontoxic multinodular goiter Category: Medical Plan: 39-year-old female with no personal history of head or neck radiation, with family history of thyroid cancer coming in today for initial evaluation of thyroid nodules. She was diagnosed with thyroid nodules sometime around 2013. FNA biopsy of the left dominant nodule per patient done at [facility] was benign , I do not have records of this. Ultrasound of the thyroid 01/18/2025: I reviewed the images myself which showed a left superior 1.2 cm solid hypoechoic TR 4 nodule, this meets criteria for follow up. A right midpole 0.7 cm spongiform nodule, right inferior pole 0.5 cm spongiform nodule. Heterogenous appearance of the thyroid gland noted. I explained that it is common to have thyroid nodules. About 95% of the time these nodules are benign. However if the nodule is > 1 cm in size and suspicious on ultrasound then a fine need aspiration biopsy is recommended. At this point no FNA is indicated. We will continue to follow her nodules. 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 She has been on a stable dose of levothyroxine 50 mcg on Wednesday. Most recent TSH was normal from November 2024. At this point we will continue her on the same dose. 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 thyroiditis Category: Medical Plan: See above Plan See above Orders: Orders US thyroid 01/01/26 E04.2 - Nontoxic multinodular goiter Thyroid Stimulating Hormone 01/01/26 E04.2 - Nontoxic multinodular goiter Free T4 (Free Thyroxine) 01/01/26 E04.2 - Nontoxic multinodular goiter Patient Instructions: Do ultrasound of the thyroid in December 2025, someone will call you to schedule this , please make sure this is done a few weeks prior to your follow up with me in January 2026 Do thyroid blood work a few days prior to your appointment in January 2026 Coding Level of Care Code New Pt Level 4 (53767) Diagnoses Multiple thyroid nodules E04.2 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
--- OUTSIDE RECORDS SUMMARY | 2025-02-01 07:55 | XMS_ITS | Data Portability ---
Author Organization [facility], , [facility] Address [address] [place] [address] Care Team Providers Care Web Site Designer Name Role Phone DANISTRACEY GARCIA Primary Care [...] recorded. Lab TSH, serum or plasma 2013 [facility], [address] [place] [address], [id number], 4 19:19:56 T4, free, serum 2013 [facility], [address] [place] [address], [id number], 4 19:19:54 Referral None recorded. Procedures None recorded. Surgeries None recorded. Imaging ultrasound , thyroid 2013 [facility] (Imaging), [address], [place], [address], 4 20:12:27 Medication Orders levothyrox ine 50 mcg tablet 2013 [facility], [address] [place], [address], 4 14:40:09 Tubersol 5 tub. unit/0.1 mL intraderma l injection solution 2008 009 [email or web address] Not available 4 14:04:33 Patient TargetsNo targets recorded. Patient Instructions Encounter Date Encounter Id Patient Instructions Last Modified By Organization Details Last Modified Time 05/24/2014 [id number] Well Visit, Ages 18 to 65: Care Instructions [email or web address] Not available 05/24/2014 14:40:05 [email or web address] Not available [...] early on A diffe day.) Not Available [address], [address], 06/21/2009 13:14:13 06/21/20 09 06/21/2009 thyro id stimu latin g hormo ne (TSH) TSH 1.66 uIU/m L 0.50-6 .00 the ameri can colle ge of endoc rinol ogy and ameri can thyro id assoc iatio n recom mend goal TSH value s betwe en 1.0-2 .5 mIU/m L. Not Available [address], [address], 06/21/2009 13:43:18 06/21/20 09 06/27/2009 varic marilyn, [...] varic marilyn (chic kenpo x). Not Available [facility] [address], [place], [address], 06/27/2009 06:24:29 07/05/20 14 07/05/2014 T4, free, serum thyroxine free 4 1.17 NG/dL 0.93-1 .70 Nanette martin Note: New Refer ence Range as of 05/15 Not Available [facility] (Outpatient) [address] [place], [address], 07/05/2014 19:19:53 07/05/20 14 07/05/2014 TSH, serum or plasm a TSH 2.420 mU/L 0.270- 4.20 Not Available [facility] (Outpatient) [address] [place], [address], 07/05/2014 19:19:56 05/30/20 14 05/29/2014 ultra sound [...] Goldy link Physic nick: Tay perez MD [facility] (Imaging) [address] , [place], [address], 07/12/2014 10:49:45 Result Notes None recorded. Problems Name Problem SNOMED Code Status Onset Date Resolution Date Notes Provider Name and Address Organization Details Recorded Time Hypothyroidis m 18456420 Active Luis Tesfaye MD [address] [place] [address], [phone] , [facility] 5 17:24:12 Tachycardia 3124885 Active Not Available [facility] 3 03:04:16 Low back pain 759780526 Active 2000 Not Available [facility] 3 03:04:16 Problem Notes None recorded. Procedures Surgical History Date Name Laterality Status Provider Name and Address Organization Details Recorded Time 07/28/2013 completed Angelica Connolly NP [address] [place] [address], [phone], [facility] 07/30/2013 20:03:23 07/03/2007 completed Not Available [facility] 06/18/2011 06:05:52 Imaging Results None recorded. Procedure [...] Updated DateTime 5 148.59 cm 29.2 kg/m2 00005.1 1654 g 96 /min 128 mm[Hg] 74 mm[Hg] Tiffanie Verduzcoard [facility] 5 16:37:02 Date Recorded Body weight Body mass index (BMI) Body height Heart rate Systolic blood pressure Diastolic blood pressure Provider Name and Address Organization Details Last Updated DateTime 4 36035.7 40237 g 32.4 kg/m2 141.605 cm 100 /min 138 mm[Hg] 80 mm[Hg] Jodee Spencer [facility] 4 14:04:33 Date Recorded Body height Body weight Body mass index (BMI) Body temperature Heart rate Systolic blood pressure Diastolic blood pressure Provider Name and Address Organization Details Last Updated DateTime 9 149.86 cm 19024.0 32137 g 22.9 kg/m2 97.9 [degF] 96 /min 124 mm[Hg] 80 mm[Hg] Krysten Marquez [facility] 9 15:25:23 Date Recorded Body height Body mass index (BMI) Body weight Heart rate Systolic blood pressure Diastolic blood pressure Provider Name and Address Organization Details Last Updated DateTime 4 148.59 cm 29.4 kg/m2 07435.7 0891 g 68 /min 124 mm[Hg] 72 mm[Hg] Renetta Perales MA [place] - [facility] 4 10:42:38 Social History Question Answer Notes LastModified by Organizat ion Details LastModified Time Tobacco Smoking Status Never Smoker Not Available [facility] 06/18/2011 04:54:19 Do You Have An Advance [...] not available 05/24/2014 Education 4 Year College [facility] Information not available 06/21/2009 Are There [...] SNOMED-CT Code Diagnosis ICD10 Code Diagnosis Note [id number] [facility] , [address] [address] 12/02/2000 09:30:00 08/22/2008 02:02:29 [id number] Angelica Connolly NP , [facility], OFFICE [address] [place] [address] 06/21/2009 07:59:35 06/21/2009 14:43:33 [id number] TREATMENT NURSE [facility], [facility], [address] [place] [address] 06/24/2009 09:46:53 06/25/2009 08:31:01 [id number] MD ODELL Carty, [facility], OFFICE [address] [place] [address] 06/25/2009 15:11:18 06/26/2009 08:34:19 [id number] LILLI Lange, [facility], OFFICE [address] [place] [address] 05/24/2014 13:50:28 05/24/2014 14:46:44 Adult health examination [id number] Benign exam. Informatics Nurse Specialist is done elsewhere. Counseling [id number] Hypothyroidism 60836495 d/w [place]. Will start supplement tation and recheck in 6 wks since she's symptomati c. Will US as she has concerns since sister has thyroid nodule and will be get thyroidect cassandra. [id number] LILLI Lange, [facility], OFFICE [address] [place] [address] 07/12/2014 10:30:32 07/12/2014 10:54:26 Hypothyroidism 63789201 Stable now on this dose. Continue [id number] MD ODELL Lanier, [facility], OFFICE [address] [place] [address] 05/03/2015 16:25:38 05/06/2015 13:17:33 Hypothyroidism 08874255 E03.9 Health Concerns Section Related Observation LastModified by Organization Detai ls LastModified Time None Recorded Concern Status LastModified by Organization Details LastModified Time None Recorded Advance Directives Directive N: Payers Insurance Date Sequence Insurance Name Policy Number Policy Palacio Covered Member ID Palacio Member ID Guarantor Name 04/16/2014 1 [facility] [place] [id number] Italo Mitchell [id number] Rica Rodriges 05/24/[address] [facility] [place] [id number] Rica AhnRodriges [id number] Rica E O Rodriges 10/11/2007 1 [facility] ([facility]) [id number] Krysten Elizondo [id number] Riac Martin O Rodriges 05/03/2015 1 [facility] [id number] Bronson Estrada [id number] Rica Martin O Rodriges Notes Date Note Type Note Provider Name and Address Organization Details Recorded Time 06/24/2009 text/html InitializeSectio n( this.parentNode, 1 ); this.removeNode(tr ue)HPI Pt enters for PPD read at no charge..[facility] 06/24/2009 10:43:01 06/25/2009 text/html Patient seen toeunice bowers because of her reaction to adacel given 06/21. Noted pain and swelling in the next day. No fever. Noted some redness. Area feels better today. She thinks the area swelling a smaller. There is some ichiness. No previous difficulties with tetanus shots. No difficulty breathing. No fever Tracey Mccarthy MD [address] [place] [address], [phone], [facility] 06/25/2009 15:45:38 07/12/2014 text/html fu newly dx hypothyroidism. 6 wks on meds. Tired a bit but bad sleep lately. Not really noticing anything on the medicine though. Stefan Pratt PA-C [address] [place] [address], [phone], [facility] 07/12/2014 10:53:41 OBGyn Episode No OBEpisode recorded.
== END 2025-02-01 08:16 | disposition home or self-care (01) ==
LOC: HO.ENCR 07:53
PROVIDERS: PCP Internal Medicine; Visit Provider Student in an Organized Health Care Education/Training Program
DX: E04.2 Nontoxic multinodular goiter (principal); E06.3 Autoimmune thyroiditis
CPT/HCPCS: 99204

== ENCOUNTER 2025-06-13 15:53 | Outpatient (REF) | payer BC, SELFPAY | END 2025-06-13 15:54 | disposition home or self-care (01) | LOC: HO.LAB 15:53 | PROVIDERS: PCP Physician Assistant Medical; Visit Provider Physician Assistant Medical | DX: E06.3 Autoimmune thyroiditis (principal); E78.5 Hyperlipidemia, unspecified; E66.811 Obesity, class 1; E78.00 Pure hypercholesterolemia, unspecified; Z79.890 Hormone replacement therapy; Z79.899 Other long term (current) drug therapy; Z68.34 Body mass index [BMI] 34.0-34.9, adult | CPT/HCPCS: 96127 ==

== ENCOUNTER 2025-06-13 15:53 | Outpatient (AMB) | payer BC, SELFPAY ==
--- NOTE | 2025-06-13 11:52 | A.OFFPC_ITS ---
Vital Signs 06/13/25 15:54 06/13/25 16:39 Height 4 ft 11 in Weight 173 lb BMI 34.9 BP 148/73 H 151/80 H Blood Pressure Location Rt brachial Position Sitting Respiration 14 Pulse 104 H Pulse Source Pulse Oximeter Temp 97.9 F Temp Source Temporal Artery Scan Pulse Oximetry (%) 100 Oxygen Delivery Method Room Air Intake Visit Reasons: 6 month follow Sales And Merchandising Representative Required: No Accompanied by: Self / Same As Patient Allergies metronidazole (From FLAGYL) Adverse Reaction (Severe, Unverified 06/13/25 16:39) SEVERE NAUSEA Medication List - Last Reconciled 06/13/25 by Taylor White PA-C levothyroxine 50 mcg PO 4XW 90 days lisinopril 10 mg PO DAILY magnesium 200 mg PO DAILY tirzepatide (Mounjaro) 2.5 mg (0.5 mL) subcut QWEEK Tobacco use date assessed: 12/04/24 Dental Screening Dental Screen Date: 12/04/24 HPI 6 month follow HPI Details The patient is a 40-year-old female presenting for a six-month follow- up. She reports a weight gain of approximately 8-10 pounds since her last visit, with her weight increasing from 166 lbs to 173 lbs. She was previously approved for Wegovy for six months but was hesitant to start due to concerns about side effects such as nausea and vomiting. Her father is overweight. The patient reports a history of what she believes were gallstones during COVID, which she described as very painful, and she is concerned about potential gallbladder issues with weight loss medications. The patient is on levothyroxine and requires refills; it is recommended she have her thyroid levels checked every six months. Her last thyroid lab work was in November. A thyroid ultrasound has been scheduled for next year. A review of recent lab results revealed a slightly low white blood cell count at 4.5, normal electrolytes, kidney function, fasting glucose, and hemoglobin A1c. Her LDL cholesterol was elevated by five points, vitamin B12 was normal, and v itamin D was slightly low. Thyroid, estrogen, and luteinizing hormone levels were normal. Her blood pressure has been elevated during her last two visits, with the last reading being 132/80 mmHg. She reports taking [id number] magnesium for menstrual cramps. Social History - Family Status: The patient is and has children. - Exercise: The patient reports going fo r walks but has limited time for exercise. - Nutrition: The patient states she does not eat poorly and her diet includes fruits, vegetables, and pasta. - Family History: Her father is overweig ht. [facility] Medical History Hypothyroid Multiple thyroid nodules White coat syndrome without diagnosis of hypertension Heart murmur H/O thyroid nodule Hypertension Pure hypercholesterolemia, unspecified Hyperlipidemia LDL goal <100 Class 1 obesity with body mass index (BMI) of 33.0 to 33.9 in adult Establishing care with new doctor, encounter for Hair loss Weight gain Shabnam's thyroiditis Family History Father High cholesterol Prostate cancer Mother High cholesterol Social History Housing: House Alcohol intake: current Alcohol intake frequency: a few times a month Patient Tobacco Use Status: Never used Tobacco service: No Current occupational status: employed Cognitive needs: No Hearing needs: No Vision needs: No Questionnaire PHQ-9 Over the last 2 weeks, how often have you been bothered by any of the following problems? 1. Little interest or pleasure in doing things: not at all 2. Feeling down, depressed, or hopeless: not at all 3. Trouble falling or staying asleep, or sleeping too much: not at all 4. Feeling tired or having little energy: not at all 5. Poor appetite or overeating: not at all 6. Feeling bad about yourself - or that you are a failure or have let yourself or your family down: not at all 7. Trouble concentrating on things, such as reading the newspaper or watching television: not at all 8. Moving or speaking so slowly that other people could have noticed. Or the opposite - being so fidgety or restless that you have been moving around a lot more than usual: not at all 9. Thoughts that you would be better off or of hurting yourself in some way: not at all Total score: 0 Depression Screening Interpretation: Negative Depression Screening Done: Yes 88232 - PHQ-9 Billing: Yes Source: Developed by Drs. Renetta Almanza Kurt Kroenke and colleagues, with an educational lety from [employer]. Thrive Questionnaire Date Thrive assessed: 12/04/24 I am a: Patient What is your living situation today?: I have a steady place to live Within the past 12 months, did the food you bought not last and you didn't have the money to get more?: Never true Within the past 12 months, did you worry whether your food would run out before you got money to buy more?: Never true Do you have trouble paying for medicines?: No Do you have trouble getting transportation to medical appointments?: No Do you have trouble paying your heating and electricity bill?: No Do you have trouble taking care of your child, family member or friend?: No Do you have trouble with day-to-day activities such as bathing, preparing meals, shopping, managing finances, etc.?: No Are you currently unemployed and looking for a job?: No Are you interested in more education?: No Please select the resources that you would like help with: None THRIVE Score: 0 AUDIT C Alcohol Use Questionnaire (AUDIT-C) 1. How often do you have a drink containing alcohol?: 2-4 times a month 2. How many drinks containing alcohol do you have on a typical day when you are drinking?: 1 or 2 3. How often do you have six or more drinks on one occasion?: Never Total Score: 2 Score Reviewed/Action Taken: No CARL-7 AMB Questionnaire CARL-7 Date CARL - 7 assessed: 12/04/24 Feeling nervous, anxious, or on edge: 0 = Not at all Not being able to stop or control worryin = Not at all Worrying too much about different things: 0 = Not at all Trouble relaxin = Not at all Being so restless that it is hard to sit still: 0 = Not at all Becoming easily annoyed or irritable: 0 = Not at all Feeling afraid as if something awful might happen: 0 = Not at all Total CARL-7 score (0-4 normal; 5-9 mild; 10-14 moderate; 15-21 severe): 0 Source: Developed by Renetta Ramos Kurt Kroenke and colleagues, with an educational lety from [employer]. CARL-7 Assessment Billing CARL-7 Assessment Tool: CARL-7 Assessment 69152 Review of Systems Const Details: - Constitutional: Reports feeling great but notes a recent weight gain of about 8 pounds. - Gastrointestinal: Reports a history of one episode of suspected gallstone pain. - Gynecological: Reports menstrual cramps. All systems reviewed & are unremarkable except as noted in HPI and below Physical exam (Primary Care) Vital Signs: Last Vital Signs Temp 97.9 F 06/13/25 15:54 Pulse 104 H 06/13/25 15:54 Resp 14 06/13/25 15:54 BP 148/73 H 06/13/25 15:54 Pulse Ox 100 06/13/25 15:54 Oxygen Delivery Method Room Air 06/13/25 15:54 Care Plan Goal for BP management: <140/90 will start on lisinopril 10 mg daily and have patient return in a month with diary BMI result Body Mass Index 34.9 BMI Assessment/Plan discussion: High BMI High, discussed plan: lifestyle, weight reduction, dietary, physical activity, alcohol moderation and other Tobacco/Smoking Status: Tobacco use Status Tobacco use date assessed 12/04/24 06/13/25 11:53 Patient Tobacco Use Status Never used Tobacco 06/13/25 11:53 PHQ-9: PHQ-9 Score PHQ-9: Total score 0 06/13/25 16:00 Depression Screening Interpretation: Negative Thrive Assessment: Date of Thrive Assessment Date Thrive assessed 12/04/24 06/13/25 11:53 Const Other: Appearance: Alert. Oriented X3. No acute distress. Head: Normal external exam. Normocephalic. Atraumatic. Eyes: Pupils are equal, round, and reactive to light. Extraocular movements intact. Conjunctiva and sclera normal. Eyelids normal. Throat: Pharynx normal. Uvula midline. Moist mucous membranes. Neck: Normal inspection. Neck supple. Full range of motion. Cardiovascular: Normal heart rate and rhythm. Heart sound normal. No murmurs noted. Pulses normal throughout. Respiratory: No respiratory distress. Painless inspiration. Breath sounds normal. No wheezes/rales/rhonchi noted. No accessory muscle usage noted or decreased air movement noted. Back: Full range of motion noted. Skin: Skin warm and dry. Normal skin color. Normal skin turgor. No rashes/lesions/lacerations noted. Extremities: Extremities exhibit normal range of motion. Neuro: Oriented X 3. No motor deficit. No sensory deficit. Reflexes normal. Results Reviewed Results Reviewed: - Labs: - CBC: White blood cell count 4.5 K/uL (slightly low). Platelet count normal. - CMP: Sodium, potassium, chloride, and kidney function normal. - Glucose Tolerance: Fasting glucose and hemoglobin A1c normal. - LFTs: Liver enzymes normal, with one value elevated by 6 points. - Lipid Panel: Triglycerides and cholesterol good. LDL elevated by 5 points. - Vitamins: Vitamin B12 normal, vitamin D slightly low. - Hormones: Thyroid, estrogen, and luteinizing hormone levels normal. - Tests and Diagnostics: - Thyroid Ultrasound: Ordered for next year. 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 After discussing her hesitation with Stephy due to side effect concerns, Mounjaro was offered as a potentially more effective alternative. A prescription for Mounjaro will be sent, starting at a low dose with monthly titrations planned. The patient will message when she is ready for a dose increase, and she was informed she can stop the medication at any time. Counseled on the importance of exercise to prevent muscle loss while on the medication. Her concerns about gallstones were addressed, acknowledging it can be a risk with rapid weight loss. (2) Hypertension: Code(s): I10 - Essential (primary) hypertension Category: Medical Plan: The patient's blood pressure has been elevated on recent visits and remained high today, likely exacerbated by recent weight gain. A prescription for lisinopril 10 mg daily will be started. The patient was counseled on potential side effects, including cough and the rare risk of angioedema, with instructions to go to the emergency room if tongue or lip swelling occurs. Lifestyle modifications were discussed, including aiming for 150 minutes of moderate- intensity exercise weekly. Follow-up is scheduled in one month to recheck blood pressure. 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 A 90-day prescription with three refills will be sent for her levothyroxine. Thyroid function tests will be repeated, as her last labs were over six months ago. The patient was instructed to complete labs, including a non-fasting thyroid panel and a urinalysis, before her one-month follow-up. (4) Hyperlipidemia LDL goal <100: Code(s): E78.5 - Hyperlipidemia, unspecified Category: Medical Plan: The patient's LDL cholesterol was elevated by five points on recent labs. A statin will not be initiated at this time, and she will be provided with information on managing it naturally. (5) Pure hypercholesterolemia, unspecified: Code(s): E78.00 - Pure hypercholesterolemia, unspecified Category: Medical Plan: The patient's LDL cholesterol was elevated by five points on recent labs. A statin will not be initiated at this time, and she will be provided with information on managing it naturally. Plan Plan Patient was informed and verbally consented to the use of an ambient scribe for clinic note documentation during this visit. 1. Overweight The patient has gained approximately 8-10 pounds. After discussing her hesitation with Stephy due to side effect concerns, Mounjaro was offered as a potentially more effective alternative. A prescription for Mounjaro will be sent, starting at a low dose with monthly titrations planned. The patient will message when she is ready for a dose increase, and she was informed she can stop the medication at any time. Counseled on the importance of exercise to prevent muscle loss while on the medication. Her concerns about gallstones were addressed, acknowledging it can be a risk with rapid weight loss. 2. Essential Hypertension The patient's blood pressure has been elevated on recent visits and remained high today, likely exacerbated by recent weight gain. A prescription for l isinopril 10 mg daily will be started. The patient was counseled on potential side effects, including cough and the rare risk of angioedema, with instructions to go to the emergency room if tongue or lip swelling occurs. Lifestyle modifications were discussed, including aiming for 150 minutes of moderate- intensity exercise weekly. Follow-up is scheduled in one month to recheck blood pressure. 3. Hypothyroidism The patient takes levothyroxine for hypothyroidism. A 90-day prescription with three refills will be sent for her levothyroxine. Thyroid function tests will be repeated, as her last labs were over six months ago. The patient was instructed to complete labs, including a non-fasting thyroid panel and a urinalysis, before her one-month follow-up. 4. Dyslipidemia The patient's LDL cholesterol was elevated by five points on recent labs. A statin will not be initiated at this time, and she will be provided with information on managing it naturally. I discussed the patient's recent weight gain and her nervousness about starting Wegovy due to potential side effects like nausea and vomiting. I explained that Mounjaro is an alternative that may be more effective and addressed her concerns about medication, including the risk of gallstones with rapid weight loss. I emphasized the importance of regular exercise to maintain muscle mass while on weight loss medication. She agreed to a prescription for Mounjaro, and I explained the plan for monthly dose titration and that she can stop the medication at any time. I also addressed her elevated blood pressure readings from this and prior visits and recommended starting lisinopril 10 mg daily. I counseled her on the common side effect of a cough and the rare but serious risk of angioedema, advising her to seek emergency care for any lip or tongue swelling. We discussed her hypothyroidism management, including sending a 90-day refill of levothyroxine and ordering repeat thyroid labs. I instructed her to return for a follow-up visit in one month to monitor her blood pressure. Orders: Orders UA CC w/rflx Micro + Cult Today Z00.00 - Encounter for general adult medical examination without abnormal findings TSH reflex Free T4 Today Z00.00 - Encounter for general adult medical examination without abnormal findings Medications: New lisinopril 10 mg PO DAILY 90 tabs 3RF tirzepatide (Mounjaro) for 4 weeks 2.5 mg (0.5 mL) subcut QWEEK 2 mL 0RF E66.811 - Obesity, class 1, E78.00 - Pure hypercholesterolemia, unspecified, E78.5 - Hyperlipidemia, unspecified, R63.5 - Abnormal weight gain, Z68.33 - Body mass index [BMI] 33.0- 33.9, adult Changed From levothyroxine 50 mcg PO 4XW 52 tabs 3RF To levothyroxine 50 mcg PO 4XW 52 tabs 3RF 90 days Patient Instructions: - You will start lisinopril 10 mg once a day for your high blood pressure. - Be aware that lisinopril can sometimes cause a dry cough. - If you experience any swelling of your lips or tongue, go to the emergency room right away. - You have been prescribed Mounjaro for weight loss. - Contact us each month so we can adjust the dose. - You can stop taking this medication at any time if you do not like the side effects. - Make sure to exercise, aiming for 150 minutes per week, to avoid losing muscle while on weight loss medication. - Please go to the lab to have your thyroid levels checked and to provide a urine sample before your next visit. - Your prescription for levothyroxine has been sent to the pharmacy. - Please schedule a follow-up appointment in one month to check your blood pressure.
[2025-06-13 15:54] VITALS: BP 148/73; PULSE 104; RESP 14; TEMP 36.6; O2SAT 100; BMI 34.9
[2025-06-13 16:39] VITALS: BP 151/80
--- OUTSIDE RECORDS SUMMARY | 2025-06-13 18:51 | XMS_ITS | Clinical Summary ---
Author Organization [facility] Address [address] [place] [address] Phone Care Team Providers Care Erp Business Analyst Name Role Phone Estrada Aponte MD Unavailable Martha Louie MD Unavailable Bronson Narvaez MD Primary Care Provider Unavail able Allergies Active Allergy Reactions Criticality Noted Date Comments Metronidazole 10/04/2019 Medications levothyroxine (SYNTHROID, LEVOTHROID) 50 MCG tablet 1 tablet on an empty stomach in the morning Orally Once a day, do not take M/W/F Active NIFEdipine (PROCARDIA) 10 MG immediate release capsule Take 10 mg by mouth daily. Has not started Active Active Problems Problem Noted Date Diagnosed Date Low grade squamous intraepit helial lesion (LGSIL) on cervicovaginal cytologic smear 10/04/2019 Overview (10/27/2022): 4718-1595. Pap and HPV both normal 2019. Recommend repeat cotesting 2024 Resolved Problems Problem Noted Date Diagnosed Date Resolved Date Vulvar abscess 12/01/2019 10/27/2022 Overview (12/01/2019): Upper left, not maryan's Assessment & Plan (12/01/2019 5:57 PM EDT): I&D done, recommend daily soak or sloppy wet and warm, not hot, compress Immunizations Immunization Administration Dates Next Due MMR 03/26/2018 Tdap 01/24/2018,05/26/2013 Family History Medical History Relation Comments Hypertension Father Prostate cancer Father Colon cancer Maternal Grandmother COLON, sigm oid, malignant Hyperlipidemia Mother Bladder Cancer Paternal Grandfather Alzheimer's disease Paternal Grandmother Thyroid cancer Sister Relation Status Comments Brother 1 Alive Brother 2 Alive Father Alive Maternal Grandfather Maternal Grandmother Mother Alive Paternal Grandfather Paternal Grandmother Sister Alive Social History Tobacco Use Types Packs/Day Years Used Date Smoking Tobacco: Never Smokeless Tobacco: Never Alcohol Use Standard Drinks/Week Comments Yes 0 (1 standard drink = 0.6 oz pur e alcohol) on weekends Education Answer Date Recorded Are you interested in more education? Not on aleah e 11/26/2022 Are you concerned about learning? Not on file 11/26/2022 No 11/26/2022 No 11/26/2022 Digital Access Answer Date Recorded No 12/28/2022 No 12/28/2022 Reliable internet access at home? Not on file 12/28/2022 Device with a working camera? 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 Not on file Not on file Not on file Last Filed Vital Signs Vital Sign Reading Time Taken Comments Blood Pressure 142/84 01/21/2024 9:44 AM EDT Pulse 100 06/18/2016 3:47 AM EST Temperature - - Respiratory Rate - - Oxygen Saturation - - Inhaled Oxygen Concentration - - Weight 69.9 kg (154 lb) 01/21/2024 9:44 AM EDT Height 151.1 cm (4' 11.5 ) 01/21/2024 9:44 AM ED T Body Mass Index 30.58 01/21/2024 9:44 AM EDT Plan of Treatment Health Maintenance Due Date Last Done Comments TSH LEVEL 1985 DEPRESSION SCREENING 1998 HEPATITIS C SCREENING 2004 SCREENING FOR DIABETES 2021 PAP SMEAR 10/03/2022 10/04/2019, 03/11/2019, 06/24/2015, Additional history exists INFLUENZA VACCINE (#1) 2025 COVID-19 VACCINE ( season) 2025 06/04/2022, 07/17/2021, 11/29/2020, Additional history exists Adult Td,Tdap Booster 01/25/2028 01/24/2018 , 05/26/2013, 06/21/2009 HIV ONE-TIME SCREENING (18-65 YEARS) Completed 11/24/2006 SMOKING STATUS SCREENING (Once After 26 Yrs) Completed 01/21/2024 HEPATITIS A VACCINES Aged Out No long er eligible based on patient's age to complete this topic HIB VACCINES Aged Out No longer eligi ble based on patient's age to complete this topic IPV VACCINES Aged Out No longer eligi ble based on patient's age to complete this topic MENINGOCOCCAL VACCINES (ACWY) Aged Out No longer eligible based on patient's age to complete this topic MENINGOCOCCAL VACCINES (B) Aged Out N o longer eligible based on patient's age to complete this topic PNEUMOCOCCAL VACCINES (0-49 years) Aged Out No longer eligible based on patient's age to complete this topic Medical Devices Not on file Procedures Procedure Name Priority Date/Time Associated Diagnosis Comments PAP TEST Routine 10/04/2019 12:00 AM EST from Last 3 Months or Most Recently Relevant to Health Maintenance Results * Pap Smear (10/04/2019 12:00 AM EST) 10/04/2019 10/05/2019 8:5 3 AM EST Narrative SEE NARRATIVE - 10/11/2019 4:26 PM EDT [address] [address] Package Line Relief Operator: Carey Brumfield MD T[employer] AND GROUNDS SUPERVISOR Cytology Report FINAL DIAGNOSIS A. PAP SMEAR (SUREPATH) CE: SPECIMEN ADEQUACY: Satisfactory for evaluation; transformation zone absent/insufficient. INTERPRETATION: NEGATIVE FOR INTRAEPITHELIAL LESION OR MALIGNANCY. Electronically Signed Out By: SANTIAGO Allen(ASCP) SANTIAGO Busch(ASCP) The Pap test is a screening test primarily for squamous cancers and precursors and has associated false-negative and false-positive results. New technologies such as liquid-based preparations may decrease but will not eliminate all false-negative results. Regular sampling and follow-up of unexplained clinical signs and symptoms are recommended to minimize false negative results. PROCEDURES/ADDENDA HPV Testing (Requested) Ordered Date: 10/05/2019 A. PAP SMEAR (SUREPATH) CE: Human Papilloma Virus Test Negative for high-risk human papillomavirus types 16, 18, 45 and the Other high risk probe set (Includes 31, 33, 35, 39, 51, 52, 56, 58, 59, 66, 68) by [employer] HR-HPV analysis. Clinical correlation is advised. This HPV test was performed at [facility], [address] [place] [address]. This test has been FDA approved for SurePath cervical cytology specimens. The accuracy and precision of this test for all other specimen sources has been verified in the Cytopathology Laboratory of the [facility] and has not been cleared or approved by the U.S. Food and Drug Administration. Clinical correlation is advised. CLINICAL HISTORY Date of Last Menstrual Period: 09-11-2019 Other Clinical Conditions: Screening Pap Abnormal PAP at Other Lab: [facility] SPECIMEN SOURCE A: PAP SMEAR (SUREPATH) CE Patient Name: ROSETTA ELIZONDOCHE Hi. : 1985 (Age: 34) Sex: F Institution: [facility] Location: [facility] Date of Collection: 10/04/2019 Date of Reported: 10/11/2019 16:26 Results to: Estrada Aponte MD Estrada Aponte MD CYTOLOGY ORDERABLES Final Result SEE NARRATIVE from Last 3 Months or Most Recently Relevant to Health Maintenance Insurance [facility] [address] [place] [address] [place] [address] [facility] [address] [place] [address] [place] [address] Care Teams Erp Business Analyst Relationship Specialty Start Date End Date Bronson Narvaez MD PCP - General Endocrinology 09/25/19 Estrada Aponte MD [address] [address] [email or web address] Historical LMR Provider 05/19/17 Martha Louie MD [address] [address] Historical LMR Provider 05/19/17 Additional Source Comments The information contained in this document represents components of the legal health record. It is not the complete legal health record.[facility]
== END 2025-06-13 16:26 | disposition home or self-care (01) ==
LOC: HO.HMCSH 15:53
PROVIDERS: PCP Physician Assistant Medical; Visit Provider Physician Assistant Medical
DX: E66.811 Obesity, class 1 (principal); Z68.33 Body mass index [BMI] 33.0-33.9, adult; I10 Essential (primary) hypertension; E06.3 Autoimmune thyroiditis; E78.5 Hyperlipidemia, unspecified; E78.00 Pure hypercholesterolemia, unspecified